=== PATIENT | male | born 2000 | race Caucasian/White ===

== ENCOUNTER 2021-02-21 00:24 | Emergency (ER) | payer SELFPAY ==
[~2021-02-21] VITALS: Ht 190.5 cm; Wt 120.5 kg
[2021-02-21 00:46] VITALS: BP 161/99
[2021-02-21] MEDS ORDERED: CLIN300C9 PO (00:51)
--- NOTE | 2021-02-21 00:52 | PHYS DOC ---
General Adult EDM: Chief Complaint: DENTAL PROBLEM HPI: HPI: Patient is a 20 year old male presents with a chief complaint of right facial swelling. Patient states facial swelling started yesterday. P Patient states over the last month he has had right upper dental pain due to a cracked tooth. Patient swelling includes his right cheek. Patient's extraocular muscles are intact with no pain with range of motion. Patient denies any fever. Review of Systems: Review of Systems: Constitutional: Denies fever or chills. [] Eyes: Denies change in visual acuity. [] HENT: Positive dental pain Respiratory: Denies cough or shortness of breath. [] Cardiovascular: Denies chest pain or edema. [] GI: Denies abdominal pain, nausea, vomiting, bloody stools or diarrhea. [] : Denies dysuria. [] Musculoskeletal: Denies back pain or joint pain. [] Integument: Positive facial swelling Neurologic: Denies headache, focal weakness or sensory changes. [] Endocrine: Denies polyuria or polydipsia. [] Lymphatic: Denies swollen glands. [] Psychiatric: Denies depression or anxiety. [] Heart Score: C/O Chest Pain: N/A Risk Factors: Risk Factors: DM, Current or recent (<one month) smoker, HTN, HLP, family his tory of CAD, obesity. Risk Scores: Score 0 - 3: 2.5% MACE over next 6 weeks - Discharge Home Score 4 - 6: 20.3% MACE over next 6 weeks - Admit for Clinical Observation Score 7 - 10: 72.7% MACE over next 6 weeks - Early Invasive Strategies Physical Exam: PE: Constitutional: Well developed, well nourished, no acute distress, non-toxic appearance. [] HENT: Normocephalic, atraumatic, bilateral external ears normal, oropharynx moist, no oral exudates, nose normal. [Poor dentition throughout right upper molar extensive decay to the gums. Surrounding gum swelling] Eyes: PERRLA, EOMI, conjunctiva normal, no discharge. [] Neck: Normal range of motion, no tenderness, supple, no stridor. [] Cardiovascular:Heart rate regular rhythm, no murmur [] Lungs & Thorax: Bilateral breath sounds clear to auscultation [] Abdomen: Bowel sounds normal, soft, no tenderness, no masses, no pulsatile masses. [] Skin: Warm, dry, no erythema, no rash. [] Positive facial swelling right cheek Back: No tenderness, no CVA tenderness. [] Extremities: No tenderness, no cyanosis, no clubbing, ROM intact, no edema. [] Neurologic: Alert and oriented X 3, normal motor function, normal sensory function, no focal deficits noted. [] Psychologic: Affect normal, judgement normal, mood normal. [] EKG: EKG: [] Radiology/Procedures: Radiology/Procedures: [] Course & Med Decision Making: Course & Med Decision Making Pertinent Labs and Imaging studies reviewed. (See chart for details) [] Treatment with clindamycin. Patient advised to take Tylenol and ibuprofen as needed. Patient will be prescribed Ultram and clindamycin. Patient advised to follow up with dentist. Patient to return if swelling increases and does not improved in 2-3 days. Katie Disclaimer: Katie Disclaimer: This electronic medical record was generated, in whole or in part, using a voice recognition dictation system. Departure Departure Impression: Primary Impression: Abscess, dental Additional Impression: Right facial swelling Patient Instructions: Abscessed Tooth, [id number], Dental Pain Scripts Clindamycin Hcl (CLINDAMYCIN HCL) 300 Mg Capsule 300 MG PO QID for 10 Days, #40 CAP Prov: ARIES SHELDON DO 02/21/21 ARIES SHELDON DO February 21, 2021 00:52
[2021-02-21] MEDS ORDERED: CLINDAMYCIN HCL 150 MG CAPSULE. PO ONE (01:30)
== END 2021-02-21 01:15 | disposition home or self-care (01) ==
LOC: ER 00:24
DX: K04.7 Periapical abscess without sinus (principal); R22.0 Localized swelling, mass and lump, head
CPT/HCPCS: 99283